=== PATIENT | female | born 1965 | race Caucasian/White ===

== ENCOUNTER 2023-09-16 13:51 | Outpatient (RCR) | payer OTHER, SELFPAY | END 2023-09-16 23:59 | disposition home or self-care (01) | LOC: RPT 13:51 | PROVIDERS: ATTENDING PHYSICIAN Family Medicine | DX: M60.861 Other myositis, right lower leg (principal); M60.862 Other myositis, left lower leg; R60.9 Edema, unspecified; Z73.6 Limitation of activities due to disability | CPT/HCPCS: 97110; 97140; 97162; 97535; 97760 ==

== ENCOUNTER 2023-11-04 14:10 | Emergency (ER) | payer BC, SELFPAY ==
[2023-11-04 14:15] VITALS: BP 114/56
[2023-11-04] MEDS: TYLENOL 1000 MG PO (15:30)
[2023-11-04 15:45] VITALS: BP 134/76
--- NOTE | 2023-11-04 21:49 | ED.MUSCINJ ---
HPI-Injury
General
Chief Complaint: Musculo-Skeletal Complaint
Source: patient
Exam Limitations: none
Time Seen by Provider: 11/04/23 14:47
Nursing documentation reviewed up to this point in time: agreed with
Travel History
Have you had any contact with someone who has COVID-19?: No
Do you have any symptoms of coronavirus? Fever > 100 degrees, chills, cough, shortness of breath, sore throat, loss of taste or smell, muscle aches, or headache?: No
History of Present Illness-Injury
Is this injury a work related problem?: No
Is pt an associate of [facility]?: No
Initial Injury comments:
Patient states she was sitting at home and developed sudden onset of pain to right dorsal foot. States it felt like a muscle cramp but has not let up. Brought to ED by spouse for evalo. Incident ocurred today.
Past History
Past History
ED Past Medical History: Other (Endometriosis, lumbar radiculopathy)
ED Past Surgical History: Gynecological
Social History
Tobacco: Non-smoker
Personal:
Living: with family
Review of Systems
Review of Systems
Allergies reviewed?: Yes
All Other Systems: ROS reviewed and negative except as documented in HPI and ROS
Constitutional: Reports no symptoms
Musculoskeletal: Reports joint pain (RIght dorsal foot pain)
Skin: Reports no symptoms
Neurological: Reports no symptoms
Psychiatric: Reports no symptoms
Musculoskeletal Injury Exam
Musculoskeletal Injury Exam
Right Dorsal Foot:
Pain with Movement?: Moderate
Tender to palpation?: Moderate
External deformity and angulation?: None
Joint effusion?: None
Contusion?: None
Hematoma-local bleeding into tissue?: None
Crepitus with movement?: No
Malalignment/deformity?: No
Range of motion: Limited
Distal skin color and temperature: normal-warm & good color
Capillary Refill: normal
Normal distal neurovascular exam?: Yes
Peripheral Pulses: posterior tibial (right): 3+ and dorsalis pedis (right): 3+
Phy Exam
General Physical Exam
General Presentation: well appearing and no apparent distress
General age: appears stated age
General Skin: warm and dry
General Habitus: normal
Musculoskeletal Exam
Musculoskeletal Exam: neuro vasc intact and other (Achilles intact, no tenderness base of 5th, proximal tib/fib)
Skin Exam
Skin Exam: normal color, warm/dry and no rash
Psychiatric Exam
Psychiatric Exam: normal mood/affect
Injury Course
Orders/Labs/Results
Orders:
Orders
11/04/23 14:19
Foot, Right 3 View [CR Foot - Right Min 3 Views] Urgent
Comment:
Reason For Exam: injury
11/04/23 14:54
Ortho Boot Right- Treatment ONCE
Short or tall?: Short
Acetaminophen [Tylenol] 1,000 mg PO NOW STA
*Radiology
Radiology exam reviewed: radiology read reviewed
*Pulse Oximetry
Patient hypoxic: no
*Critical Care Note
Total Time (30-74mins, 75-104mins- exclusive of procedures): Not Applicable
ED Attending Note
-
Portions of this chart may have been created with voice recognition software.� Occasional wrong word or��sound alike� substitutions may have occurred due to the inherent limitations of voice recognition software.
Discharge Plan
Departure
Patient Disposition: Home (Routine Discharge)
Date of Disposition: 11/04/23
Time of Disposition: 14:55
Patient with high blood pressure during this ER visit?: No
Condition: Good
Covid-19: Not Applicable
Discharge Problem:
Acute foot pain
Instructions: Using Cold for Pain, Musculoskeletal Pain
Prescriptions:
No Action
calcium carbonate [Oyster Shell Calcium 500] 500 MG tablet
500 mg PO TID
pa-qqt-RR-Wh-Kl-lyqjrby-lutein 1 EACH tablet
1 tab PO DAILY
prednisone 10 MG tablet
10 mg PO .TAPER Qty: 30 0RF
Rx Instructions:
Take 40mg daily x3days, 30mg daily x3days,
20mg daily x3days, 10mg daily x3days.
hydrocodone-acetaminophen 1 TABLET tablet
1 tab PO Q4HPRN PRN (Reason: severe pain) Qty: 10 0RF
tramadol 50 mg tablet
50 mg PO BID PRN (Reason: pain) Qty: 14 0RF
tamsulosin [Flomax] 0.4 mg Capsule
0.4 mg PO DAILY Qty: 14 0RF
ondansetron 4 mg Tablet,Disintegrating
4 mg PO BIDPRN PRN (Reason: nausea/vomiting) Qty: 10 0RF
Referrals:
Henry Wen DPM [[facility] Professional Person[facility]] - Next open appointment
Interventions
Interventions:
*Risk Screen - Suicide Last Done: 11/04/23 14:18
*General Assessment Last Done: 11/04/23 14:18
*Neglect/Abuse Screening Last Done: 11/04/23 14:18
*Nursing Disposition Last Done: 11/04/23 15:46
ED-Musculoskeletal Assessment Last Done: 11/04/23 15:38
Discharge Date and Time
Discharge Date/Time: 11/04/23 15:47
== END 2023-11-04 15:47 | disposition home or self-care (01) ==
LOC: EMR 14:10
PROVIDERS: EMERGENCY PHYSICIAN Emergency Medicine; FAMILY PHYSICIAN Family Medicine
DX: M79.671 Pain in right foot (principal)
CPT/HCPCS: 99283; 73630

== ENCOUNTER → 2023-12-30 09:58 | Outpatient (REF) | payer BC, SELFPAY | LOC: RAD 09:58 | PROVIDERS: ATTENDING PHYSICIAN Specialist; FAMILY PHYSICIAN Family Medicine | DX: N20.0 Calculus of kidney (principal) | CPT/HCPCS: 74018 ==

== ENCOUNTER → 2025-04-20 13:17 | Outpatient (REF) | payer BC, SELFPAY | LOC: RAD 13:17 | PROVIDERS: ATTENDING PHYSICIAN Family Medicine | DX: M89.9 Disorder of bone, unspecified (principal) | CPT/HCPCS: 70250 ==